=== PATIENT | male | born 2000 | race Caucasian/White ===

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

== ENCOUNTER 2019-07-17 09:25 | Emergency (ER) | payer OTHER ==
[2019-07-17 09:42] VITALS: BP 120/67; PULSE 87; TEMP 99.8; BMI 53.7
--- NOTE | 2019-07-17 09:56 | PDOC ---
History of Present Illness - General Chief Complaint: Cold Symptoms Stated Complaint: COLD SYMPTOMS Time Seen by Provider: 07/17/19 09:41 History Source: Patient Exam Limitations: Clinical Condition - History of Present Illness Initial Comments: 07/17/19 09:56 Patient with history of insulin-dependent diabetes presented with complaint of 1 day history of body aches, nasal congestion, fever, chills, nausea and intermittent abdominal discomfort. Patient reported having fever of 101 F last night which he took Tylenol. Patient did not take anything for symptoms today. Patient reported malaise with nasal congestion that started 4 days ago but started having fevers and worsening symptoms yesterday. Denies recent travel with sick contact. Patient report doing fingerstick this morning with a glucose of 120. Denies any other symptoms Is this a multiple visit Asthma Patient?: No Timing/Duration: 24 hours Past History - Past Medical History Allergies/Adverse Reactions: Allergies Allergy/AdvReac Type Severity Reaction Status Date / Time No Known Allergies Allergy Verified 12/03/18 22:13 Home Medications: Ambulatory Orders Benzonatate [Tessalon Pearls -] 100 mg PO Q8H PRN #20 capsule 07/17/19 Ipratropium [place] 2 spray NS BID PRN #1 spray 07/17/19 Ondansetron [Zofran *Odt*] 4 mg SL Q8H PRN #12 od.tablet 07/17/19 Oseltamivir Phosphate [Tamiflu -] 75 mg PO DAILY #10 capsule 07/17/19 COPD: No Diabetes: Yes - Immunization History Immunization Up to Date: No - Psycho Social/Smoking Cessation Hx Smoking History: Never smoked Have you smoked in the past 12 months: No Information on smoking cessation initiated: No Hx Alcohol Use: No Drug/Substance Use Hx: No Review of Systems - Review of Systems Able to Perform ROS?: Yes Is the patient limited Panamanian proficient: No Constitutional: Yes: Chills, Fever, Malaise HEENTM: Yes: Symptoms Reported, See HPI, Nose Congestion. No: Eye Pain, Blurred Vision, Tearing, Recent change in vision, Double Vision, Cataracts, Ear Pain, Ocular Prothesis, Ear Discharge, Nose Pain, Tinnitus, Nose Bleeding, Hearing Loss, Throat Pain, Throat Swelling, Mouth Pain, Dental Problems, Difficulty Swallowing, Mouth Swelling, Other Respiratory: Yes: Symptoms reported, See HPI, Cough. No: Orthopnea, Shortness of Breath, SOB with Exertion, SOB at Rest, Stridor, Wheezing, Productive cough, Hemoptysis, Other Cardiac (ROS): No: Symptoms Reported, See HPI, Chest Pain, Edema, Irregular Heart Rate, Lightheadedness, Palpitations, Syncope, Chest Tightness, Other ABD/GI: Yes: Symptoms Reported, See HPI, Nausea. No: Blood Streaked Bowels, Constipated, Diarrhea, Difficulty Swallowing, Vomiting, Indigestion, Abdominal cramping Musculoskeletal: No: Symptoms Reported Integumentary: No: Symptoms Reported, Other Neurological: No: Symptoms reported, Headache, Dizziness All Other Systems: Reviewed and Negative *Physical Exam - Vital Signs Last Vital Signs Temp Pulse Resp BP Pulse Ox 99.8 F H 87 18 120/67 98 07/17/19 09:33 07/17/19 09:33 07/17/19 09:33 07/17/19 09:33 07/17/19 09:33 - Physical Exam 07/17/19 09:59 GENERAL: Well developed, well nourished. Awake and alert. No acute distress. HEENT: Normocephalic, atraumatic. PERRLA, EOMI. No conjunctival pallor. Sclera are non-icteric. Moist mucous membranes. Oropharynx is clear. NECK: Supple. Full ROM. CARDIOVASCULAR: Regular rate and rhythm. No murmurs, rubs, or gallops. Distal pulses are 2+ and symmetric. PULMONARY: No evidence of respiratory distress. Lungs clear to auscultation bilaterally. No wheezing, rales or rhonchi. ABDOMINAL: Soft. Non-tender. Non-distended. No rebound or guarding. No organomegaly. Normoactive bowel sounds. MUSCULOSKELETAL Normal range of motion at all joints. SKIN: Warm and dry. Normal capillary refill. No rashes. NEUROLOGICAL: Alert, awake, appropriate. Gait is normal without ataxia. PSYCHIATRIC: Cooperative. Good eye contact. Appropriate mood General Appearance: Yes: Nourished, Appropriately Dressed. No: Apparent Distress Medical Decision Making - Medical Decision Making 07/17/19 09:58 Patient with history of insulin-dependent diabetes presented with complaint of 1 day history of body aches, nasal congestion, fever, chills, nausea and intermittent abdominal discomfort. Patient reported having fever of 101 F last night which he took Tylenol. Patient did not take anything for symptoms today. Patient reported malaise with nasal congestion that started 4 days ago but started having fevers and worsening symptoms yesterday. Denies recent travel with sick contact. Patient report doing fingerstick this morning with a glucose of 120. Denies any other symptoms Exam significant for bilateral nasal congestion otherwise unremarkable exam with lungs clear to auscultation bilateral. Normal cardio exam. Patient symptoms likely viral syndrome and stable for discharge on Tamiflu twice daily for 5 days for viral URI, Tessalon Perles as needed for cough and Atrovent nasal spray for congestion with advised to increase fluid intake and alternate between Tylenol Motrin as needed for fever with PCP follow-up Discharge - Discharge Information Problems reviewed: Yes Clinical Impression/Diagnosis: Viral URI with cough, Malaise Condition: Stable Disposition: HOME - Admission No - Additional Discharge Information Prescriptions: Benzonatate [Tessalon Pearls -] 100 mg PO Q8H PRN #20 capsule PRN Reason: Cough Ipratropium [place] 2 spray NS BID PRN #1 spray PRN Reason: nasal congestion Ondansetron [Zofran *Odt*] 4 mg SL Q8H PRN #12 od.tablet PRN Reason: nausea Oseltamivir Phosphate [Tamiflu -] 75 mg PO DAILY #10 capsule - Follow up/Referral Referrals: Henri Burk MD [Primary Care Provider] - - Patient Discharge Instructions Patient Printed Discharge Instructions: DI for Viral Upper Respiratory Infection -- Adult Additional Instructions: Your symptoms likely caused by viral infection. Take prescribed medication as prescribed for symptoms. Alternate between Tylenol Motrin as needed for fever. Increase fluid intake. Follow-up with primary care as needed - Post Discharge Activity Work/Back to School Note: Back to Work
== END 2019-07-17 09:59 | disposition home or self-care (01) ==
LOC: JERFT 09:25
DX: J06.9 Acute upper respiratory infection, unspecified (principal); R05 Cough; R53.81 Other malaise; E11.9 Type 2 diabetes mellitus without complications
CPT/HCPCS: 99281-25

== ENCOUNTER 2020-07-20 14:02 | Emergency (ER) | payer OTHER ==
[2020-07-20 14:41] VITALS: BP 142/72; PULSE 65; TEMP 98.2; BMI 22.9
== END 2020-07-20 15:39 | disposition home or self-care (01) ==
LOC: JER 14:02
DX: U07.1 COVID-19 (principal)
CPT/HCPCS: 99283-25; C9803; U0003

== ENCOUNTER 2021-06-02 18:21 | Emergency (ER) | payer OTHER ==
[2021-06-02 18:33] VITALS: BP 125/82; PULSE 89; TEMP 98.5; BMI 23.0
[2021-06-02] MEDS ORDERED: IBUPROFEN 600 MG TABLET (FP) PO ONE ×2 (19:59→20:10)
[2021-06-02] MEDS ORDERED: LIDOCAINE 5% TOPICAL PATCH TP ONE (19:59)
[2021-06-02] MEDS ORDERED: LIDOCAINE 5% TOPICAL PATCH ONE (20:10)
[2021-06-03] MEDS ORDERED: LIDOCAINE PATCH REMOVAL MC SCH (08:00)
== END 2021-06-02 21:25 | disposition home or self-care (01) ==
LOC: JERFT 18:21
DX: M54.6 Pain in thoracic spine (principal); V43.52XA Car driver injured in collision with other type car in traffic accident, initial encounter
CPT/HCPCS: 72040-TC; 72070-TC-FY; 99284-25